=== PATIENT | female | born 1985 ===

== ENCOUNTER 2017-05-24 00:32 | Emergency (ER) | payer BC, OTHER ==
[2017-05-24 00:33] VITALS: BMI 31.7
[2017-05-24 00:45] VITALS: TEMP 98.1; O2SAT 100
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
[2017-05-24 01:07] LABS: PH,URINE 7.5 (4.7-8.0); URINE BILIRUBIN NEGATIVE (NEGATIVE); URINE BLOOD LARGE (NEGATIVE); URINE GLUCOSE (UA) NEGATIVE (NEGATIVE); URINE LEUKOCYTE ESTERASE NEGATIVE Leu/uL (NEGATIVE); URINE PROTEIN NEGATIVE mg/dL (<30 mg/dL); URINE UROBILINOGEN 0.2 E.U./dL (<1 E.U./dL)
[2017-05-24 01:09] LABS: URINE APPEARANCE CLEAR (CLEAR); URINE COLOR YELLOW (YELLOW)
[2017-05-24 01:26] LABS: URINE EPITHELIAL CELLS 0 - 2 /hpf (0-5); URINE WBC 0 - 2 /hpf (0-6)
[2017-05-24] MEDS ORDERED: cefTRIAXone (Rocephin) 250 mg Inj IM STA (01:57)
[2017-05-24] MEDS ORDERED: Lidocaine 1% Inj (20ml) ONE (02:06)
[2017-05-24 02:09] LABS: BASO # 0.02 K/mm3 (0.0-2.0); BASO % 0.2 % (0.0-3.0); EOS # 0.3 (0.0-0.7); EOS % 3.2 % (1.5-5.0); GRAN # 5.44 (1.4-6.5); GRAN % 58.8 % (50.0-68.0); HEMOGLOBIN 13.7 g/dL (12.0-16.0); LYMPH # 2.6 (1.2-3.4); LYMPH % 27.8 % (22.0-35.0); MEAN CELL VOLUME 85.9 fl (80.0-105.0); MEAN CORPUSCULAR HEMOGLOBIN 28.8 pg (25.0-35.0); MEAN CORPUSCULAR HGB CONC 33.6 g/dl (31.0-37.0); MEAN PLATELET VOLUME 9.7 fl (7.0-11.0); MONO # 0.9 (0.1-0.6); RBC 4.75 10^6/uL (3.5-6.1); RED CELL DISTRIBUTION WIDTH 13.6 % (11.5-14.5); WHITE BLOOD COUNT 9.3 10^3/ul (4.5-11.0)
[2017-05-24 02:40] LABS: ALB/GLOB RATIO 1.2 (1.1-1.8); ALBUMIN 4.4 g/dL (3.0-4.8); ALT/SGPT 29 U/L (7-56); AST/SGOT 23 U/L (14-36); BLOOD UREA NITROGEN 16 mg/dL (7-21); CALCIUM 10.1 mg/dL (8.4-10.5); GFR AFRICAN-AMERICAN > 60; GFR NON-AFRICAN AMERICAN > 60
[2017-05-24] MEDS ORDERED: Iohexol 350 MG/100 ML VIAL ONE (02:46)
--- NOTE | 2017-05-24 03:53 | CT ---
EXAM: CT Abdomen and Pelvis With Intravenous Contrast EXAM DATE/TIME: 05/24/2017 1:58 AM CLINICAL HISTORY: 32 years old, female; Pain; Abdominal pain; Generalized; Additional info: Abd pain TECHNIQUE: Axial computed tomography images of the abdomen and pelvis with intravenous contrast. All CT scans at this facility use one or more dose reduction techniques, viz.: automated exposure control; ma/kV adjustment per patient size (including targeted exams where dose is matched to indication; i.e. head); or iterative reconstruction technique. Coronal and sagittal reformatted images were created and reviewed. CONTRAST: 96 mL of omni 350 administered intravenously. COMPARISON: No relevant prior studies available. FINDINGS: Punctate 2 mm area of low attenuation in the hepatic dome too small to characterize. The spleen is normal. The pancreas is normal. No gallstones. No hydronephrosis or perinephric stranding. The bowel appears normal. A normal appendix is identified axial images 120- 126, coronal images 42 through 56. The uterus is normal. Bilateral ovarian follicles are noted. No aortic aneurysm or dissection. Stranding in the subcutaneous fat of the right by the uncertain etiology possibly related to injection. IMPRESSION: No acute findings.
[2017-05-24 04:08] VITALS: BP 138/82; PULSE 85; RESP 18
== END 2017-05-24 04:11 | disposition home or self-care (01) ==
LOC: ED 00:32
DX: N89.8 Other specified noninflammatory disorders of vagina (principal); R10.2 Pelvic and perineal pain; R10.9 Unspecified abdominal pain
CPT/HCPCS: 74177; 80053; 81001; 85025; 87086; 87491; 87591; 96372; 96374; 99283; J0696; J1885; Q9967

== ENCOUNTER 2017-12-14 18:42 | Inpatient (IN) | payer OTHER ==
[2017-12-14 19:09] VITALS: BMI 31.1
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
[2017-12-14 20:03] LABS: BASO # 0.01 K/mm3 (0.0-2.0); BASO % 0.1 % (0.0-3.0); EOS # 0.1 (0.0-0.7); EOS % 0.8 % (1.5-5.0); GRAN # 8.2 (1.4-6.5); HEMOGLOBIN 13.7 g/dL (12.0-16.0); LYMPH % 18.1 % (22.0-35.0); MEAN CORPUSCULAR HEMOGLOBIN 28.5 pg (25.0-35.0); MEAN CORPUSCULAR HGB CONC 33.2 g/dl (31.0-37.0); MEAN PLATELET VOLUME 9.5 fl (7.0-11.0); MONO # 0.8 (0.1-0.6); RBC 4.8 10^6/uL (3.5-6.1); RED CELL DISTRIBUTION WIDTH 13.7 % (11.5-14.5); WHITE BLOOD COUNT 11.1 10^3/ul (4.5-11.0)
[2017-12-14 20:14] LABS: HCG,QUALITATIVE URINE NEGATIVE (NEGATIVE)
[2017-12-14 20:15] LABS: PH,URINE 7.5 (4.7-8.0); URINE BILIRUBIN NEGATIVE (NEGATIVE); URINE BLOOD NEGATIVE (NEGATIVE); URINE GLUCOSE (UA) NEGATIVE (NEGATIVE); URINE LEUKOCYTE ESTERASE NEGATIVE Leu/uL (NEGATIVE); URINE PROTEIN NEGATIVE mg/dL (<30 mg/dL); URINE UROBILINOGEN 0.2 E.U./dL (<1 E.U./dL)
[2017-12-14 20:16] LABS: URINE APPEARANCE CLEAR (CLEAR); URINE COLOR YELLOW (YELLOW)
[2017-12-14 20:17] LABS: ALB/GLOB RATIO 1.1 (1.1-1.8); ALBUMIN 4.2 g/dL (3.0-4.8); ALT/SGPT 31 U/L (7-56); AST/SGOT 20 U/L (14-36); BLOOD UREA NITROGEN 10 mg/dL (7-21); CALCIUM 9.4 mg/dL (8.4-10.5); GFR NON-AFRICAN AMERICAN > 60
[2017-12-14 20:18] LABS: ACETAMINOPHEN < 10.0 ug/ml (10.0-20.0); SALICYLATE < 1 mg/dL (2.0-20.0)
[2017-12-14 20:50] LABS: BARBITURATES, UR NEGATIVE (NEGATIVE); BENZODIAZEPINES, UR NEGATIVE (NEGATIVE); OPIATES, UR NEGATIVE (NEGATIVE); PHENCYCLIDINE, UR NEGATIVE (NEGATIVE)
[2017-12-14] MEDS ORDERED: Alum-Mag Hydrox-Simethicone Susp (30 mL) PO PRN (21:28)
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
[2017-12-14] MEDS ORDERED: Sodium Chloride 0.9% 1,000 ML IV SCH (22:30)
[2017-12-15] MEDS: Pantoprazole 40 mg EC Tab PO SCH (05:41)
[2017-12-15 07:37] LABS: BASO # 0.01 K/mm3 (0.0-2.0); BASO % 0.1 % (0.0-3.0); EOS # 0.1 (0.0-0.7); EOS % 1.3 % (1.5-5.0); GRAN # 7.6 (1.4-6.5); GRAN % 82.6 % (50.0-68.0); HEMOGLOBIN 12.4 g/dL (12.0-16.0); LYMPH # 0.6 (1.2-3.4); MEAN CELL VOLUME 87.4 fl (80.0-105.0); MEAN CORPUSCULAR HEMOGLOBIN 27.9 pg (25.0-35.0); MEAN PLATELET VOLUME 9.6 fl (7.0-11.0); MONO # 0.8 (0.1-0.6); RBC 4.44 10^6/uL (3.5-6.1); WHITE BLOOD COUNT 9.2 10^3/ul (4.5-11.0)
[2017-12-15 08:03] LABS: ALB/GLOB RATIO 1.2 (1.1-1.8); ALBUMIN 3.8 g/dL (3.0-4.8); ALT/SGPT 29 U/L (7-56); AST/SGOT 14 U/L (14-36); BLOOD UREA NITROGEN 8 mg/dL (7-21); CALCIUM 9.2 mg/dL (8.4-10.5); GFR NON-AFRICAN AMERICAN > 60
--- NOTE | 2017-12-15 11:37 | CARD ---
APPROVED REPORT Date of service: 12/15/2017 EKG Measurement Heart [id number] <Conclusion> Normal sinus rhythm Normal ECG
--- NOTE | 2017-12-15 11:38 | CP.PCM.DIS ---
<Ghanshyam Boo - Last Filed: 12/15/17 14:21> Provider - Provider Date of Admission: 12/14/17 20:52 Attending physician: Vee Aldana MD Primary care physician: Lizteh rAana MD Time Spent in preparation of Discharge (in minutes): 45 Diagnosis - Discharge Diagnosis (1) Overdose Status: Resolved Priority: High (2) Suicidal ideation Status: Resolved Priority: High (3) Bipolar depression Status: Chronic Priority: Medium Hospital Course - Lab Results Lab Results: Most Recent Lab Values WBC 9.2 10^3/ul (4.5-11.0) 12/15/17 06:00 RBC 4.44 10^6/uL (3.5-6.1) 12/15/17 06:00 Hgb 12.4 g/dL (12.0-16.0) 12/15/17 06:00 Hct 38.8 % (36.0-48.0) 12/15/17 06:00 MCV 87.4 fl (80.0-105.0) 12/15/17 06:00 MCH 27.9 pg (25.0-35.0) 12/15/17 06:00 MCHC 32.0 g/dl (31.0-37.0) 12/15/17 06:00 RDW 14.0 % (11.5-14.5) 12/15/17 06:00 Plt Count 307 10^3/uL (120.0-450.0) 12/15/17 06:00 MPV 9.6 fl (7.0-11.0) 12/15/17 06:00 Gran % 82.6 % (50.0-68.0) H 12/15/17 06:00 Lymph % (Auto) 7.0 % (22.0-35.0) L 12/15/17 06:00 [place] % (Auto) 9.0 % (1.0-6.0) H 12/15/17 06:00 Eos % (Auto) 1.3 % (1.5-5.0) L 12/15/17 06:00 Baso % (Auto) 0.1 % (0.0-3.0) 12/15/17 06:00 Gran # 7.60 (1.4-6.5) H 12/15/17 06:00 Lymph # (Auto) 0.6 (1.2-3.4) L 12/15/17 06:00 [place] # (Auto) 0.8 (0.1-0.6) H 12/15/17 06:00 Eos # (Auto) 0.1 (0.0-0.7) 12/15/17 06:00 Baso # (Auto) 0.01 K/mm3 (0.0-2.0) 12/15/17 06:00 Sodium 140 mmol/L (132-148) 12/15/17 06:00 Potassium 4.1 mmol/L (3.6-5.0) 12/15/17 06:00 Chloride 106 mmol/L (98-107) 12/15/17 06:00 Carbon Dioxide 25 mmol/L (21-33) 12/15/17 06:00 Anion Gap 13 (10-20) 12/15/17 06:00 BUN 8 mg/dL (7-21) 12/15/17 06:00 Creatinine 0.6 mg/dl (0.7-1.2) L 12/15/17 06:00 Est GFR ( Amer) > 60 12/15/17 06:00 Est GFR (Non-Af Amer) > 60 12/15/17 06:00 Random Glucose 96 mg/dL (70-110) 12/15/17 06:00 Calcium 9.2 mg/dL (8.4-10.5) 12/15/17 06:00 Phosphorus 3.8 mg/dL (2.5-4.5) 12/15/17 06:00 Magnesium 2.1 mg/dL (1.7-2.2) 12/15/17 06:00 Total Bilirubin 0.5 mg/dL (0.2-1.3) 12/15/17 06:00 AST 14 U/L (14-36) D 12/15/17 06:00 ALT 29 U/L (7-56) 12/15/17 06:00 Alkaline Phosphatase 70 U/L (38-126) 12/15/17 06:00 Total Creatine Kinase 31 U/L (35-230) L 12/15/17 06:00 Total Protein 6.9 g/dL (5.8-8.3) 12/15/17 06:00 Albumin 3.8 g/dL (3.0-4.8) 12/15/17 06:00 Globulin 3.1 gm/dL 12/15/17 06:00 Albumin/Globulin Ratio 1.2 (1.1-1.8) 12/15/17 06:00 Urine Color Yellow (YELLOW) 12/14/17 20:01 Urine Appearance Clear (CLEAR) 12/14/17 20:01 Urine pH 7.5 (4.7-8.0) 12/14/17 20:01 Ur Specific [place] 1.015 (1.005-1.035) 12/14/17 20:01 Urine Protein Negative mg/dL (<30 mg/dL) 12/14/17 20:01 Urine Glucose (UA) Negative mg/dL (NEGATIVE) 12/14/17 20:01 Urine Ketones Negative mg/dL (NEGATIVE) 12/14/17 20:01 Urine Blood Negative (NEGATIVE) 12/14/17 20:01 Urine Nitrate Negative (NEGATIVE) 12/14/17 20: Urine Bilirubin Negative (NEGATIVE) 12/14/17 20:01 Urine Urobilinogen 0.2 E.U./dL (<1 E.U./dL) 12/14/17 20:01 Ur Leukocyte Esterase Negative Danielle/uL (NEGATIVE) 12/14/17 20:01 Urine HCG, Qual Negative (NEGATIVE) 12/14/17 20:01 Salicylates < 1 mg/dL (2.0-20.0) L 12/14/17 19:52 Urine Opiates Screen Negative (NEGATIVE) 12/14/17 20:01 Urine Methadone Screen Negative (NEGATIVE) 12/14/17 20:01 Acetaminophen < 10.0 ug/ml (10.0-20.0) L 12/14/17 19:52 Ur Barbiturates Screen Negative (NEGATIVE) 12/14/17 20:01 Ur Phencyclidine Scrn Negative (NEGATIVE) 12/14/17 20:01 Ur Amphetamines Screen Negative (NEGATIVE) 12/14/17 20:01 U Benzodiazepines Scrn Negative (NEGATIVE) 12/14/17 20:01 U Oth Cocaine Metabols Negative (NEGATIVE) 12/14/17 20:01 U Cannabinoids Screen Negative (NEGATIVE) 12/14/17 20:01 Alcohol, Quantitative < 10 mg/dL (0-10) 12/14/17 19:52 - Hospital Course Hospital Course: Patient is a 32 female with a past medical history of bipolar depression who was admitted for evaluation and treatment of drug overdose. Patient admitted for taking 20 mg Ambien and 1500 mg of Bupropion because she wanted to harm herself. With the use of physical examinations, lab work, and imaging the patient was diagnosed with and treated for drug overdose and suicide attempt. Poison control was contact and recommendations included observation for 24 hours for seizures. No seizure like activity was noted. During their hospital stay the patient was seen by psychiatry, Dr. Eli, whose recommendations were both appreciated and utilized in the care for this patient. Patient is willing to continue treatment in the psychiatry unit. During their hospital stay the patient underwent and EKG and chest xray which were reviewed, appreciated, and utilized in the management of the patients clinical course. Chest x-ray showed no acute intervention. EKG showed NSR, HR 95bpm, QTc 439ms. At this time the patient is medically stable for discharge to the psychiatry unit. Patient understands and appreciates discharge plan. Patient instructed to follow up with primary care physicians and referrals within three to five days from discharge. Furthermore, the patient is instructed to take medications as prescribed and to return to emergency room for evaluation of intractable headache, fever, chills, dizziness, chest pain, shortness of breath, abdominal pain, nausea, vomiting, diarrhea, constipation, and urinary symptoms. This is a brief summary of the patients hospital course. Please see patient chart for full details. Discharge Exam - Additional Findings Additional findings: - Constitutional Appears: Well, Non-toxic, No Acute Distress - Head Exam Head Exam: ATRAUMATIC, NORMOCEPHALIC - Eye Exam Eye Exam: EOMI, Normal appearance - ENT Exam ENT Exam: Mucous Membranes Moist - Neck Exam Neck exam: Positive for: Normal Inspection. Negative for: Meningismus, Tenderness, Thyromegaly - Respiratory Exam Respiratory Exam: Clear to Auscultation Bilateral, NORMAL BREATHING PATTERN. absent: Rales, Rhonchi, Wheezes - Cardiovascular Exam Cardiovascular Exam: RRR, +S1, +S2. absent: Bradycardia, Gallop, JVD - GI/Abdominal Exam GI & Abdominal Exam: Normal Bowel Sounds, Soft. absent: Distended, Guarding, Rebound, Tenderness - Extremities Exam Extremities exam: Negative for: calf tenderness, pedal edema - Back Exam Back exam: NORMAL INSPECTION. absent: CVA tenderness (L), CVA tenderness (R), paraspinal tenderness - Neurological Exam Neurological exam: Alert, Oriented x3 - Psychiatric Exam Psychiatric exam: Normal Affect, Normal Mood - Skin Skin Exam: Dry, Intact, Normal Color, Warm Discharge Plan - Follow Up Plan Condition: STABLE Disposition: DISCHARGE TO [facility] Additional Instructions: Patient Instructions: 1. Please follow up with primary care physician within 3-5 days from discharge 2. Please take home medications as prescribed. 3. Please return to emergency department for evaluation of new or worsening symptoms including but limited to fever, chills, chest pain, shortness of breath, abdominal pain, nausea, vomiting, diarrhea, constipation, and urinary symptoms. Referrals: Lizeth Arana MD [Primary Care Provider] - <Vee Aldana - Last Filed: 12/15/17 14:55> Provider - Provider Date of Admission: 12/14/17 20:52 Attending physician: Vee Aldana MD Primary care physician: Lizeth Arana MD [facility] Course - Lab Results Lab Results: Most Recent Lab Values WBC 9.2 10^3/ul (4.5-11.0) 12/15/17 06:00 RBC 4.44 10^6/uL (3.5-6.1) 12/15/17 06:00 Hgb 12.4 g/dL (12.0-16.0) 12/15/17 06:00 Hct 38.8 % (36.0-48.0) 12/15/17 06:00 MCV 87.4 fl (80.0-105.0) 12/15/17 06:00 MCH 27.9 pg (25.0-35.0) 12/15/17 06:00 MCHC 32.0 g/dl (31.0-37.0) 12/15/17 06:00 RDW 14.0 % (11.5-14.5) 12/15/17 06:00 Plt Count 307 10^3/uL (120.0-450.0) 12/15/17 06:00 MPV 9.6 fl (7.0-11.0) 12/15/17 06:00 Gran % 82.6 % (50.0-68.0) H 12/15/17 06:00 Lymph % (Auto) 7.0 % (22.0-35.0) L 12/15/17 06:00 [place] % (Auto) 9.0 % (1.0-6.0) H 12/15/17 06:00 Eos % (Auto) 1.3 % (1.5-5.0) L 12/15/17 06:00 Baso % (Auto) 0.1 % (0.0-3.0) 12/15/17 06:00 Gran # 7.60 (1.4-6.5) H 12/15/17 06:00 Lymph # (Auto) 0.6 (1.2-3.4) L 12/15/17 06:00 [place] # (Auto) 0.8 (0.1-0.6) H 12/15/17 06:00 Eos # (Auto) 0.1 (0.0-0.7) 12/15/17 06:00 Baso # (Auto) 0.01 K/mm3 (0.0-2.0) 12/15/17 06:00 Sodium 140 mmol/L (132-148) 12/15/17 06:00 Potassium 4.1 mmol/L (3.6-5.0) 12/15/17 06:00 Chloride 106 mmol/L (98-107) 12/15/17 06:00 Carbon Dioxide 25 mmol/L (21-33) 12/15/17 06:00 Anion Gap 13 (10-20) 12/15/17 06:00 BUN 8 mg/dL (7-21) 12/15/17 06:00 Creatinine 0.6 mg/dl (0.7-1.2) L 12/15/17 06:00 Est GFR ( Amer) > 60 12/15/17 06:00 Est GFR (Non-Af Amer) > 60 12/15/17 06:00 Random Glucose 96 mg/dL (70-110) 12/15/17 06:00 Calcium 9.2 mg/dL (8.4-10.5) 12/15/17 06:00 Phosphorus 3.8 mg/dL (2.5-4.5) 12/15/17 06:00 Magnesium 2.1 mg/dL (1.7-2.2) 12/15/17 06:00 Total Bilirubin 0.5 mg/dL (0.2-1.3) 12/15/17 06:00 AST 14 U/L (14-36) D 12/15/17 06:00 ALT 29 U/L (7-56) 12/15/17 06:00 Alkaline Phosphatase 70 U/L (38-126) 12/15/17 06:00 Total Creatine Kinase 31 U/L (35-230) L 12/15/17 06:00 Total Protein 6.9 g/dL (5.8-8.3) 12/15/17 06:00 Albumin 3.8 g/dL (3.0-4.8) 12/15/17 06:00 Globulin 3.1 gm/dL 12/15/17 06:00 Albumin/Globulin Ratio 1.2 (1.1-1.8) 12/15/17 06:00 Urine Color Yellow (YELLOW) 12/14/17 20:01 Urine Appearance Clear (CLEAR) 12/14/17 20: Urine pH 7.5 (4.7-8.0) 12/14/17 20:01 Ur Specific [place] 1.015 (1.005-1.035) 12/14/17 20:01 Urine Protein Negative mg/dL (<30 mg/dL) 12/14/17 20:01 Urine Glucose (UA) Negative mg/dL (NEGATIVE) 12/14/17 20:01 Urine Ketones Negative mg/dL (NEGATIVE) 12/14/17 20:01 Urine Blood Negative (NEGATIVE) 12/14/17 20: Urine Nitrate Negative (NEGATIVE) 12/14/17 20: Urine Bilirubin Negative (NEGATIVE) 12/14/17 20:01 Urine Urobilinogen 0.2 E.U./dL (<1 E.U./dL) 12/14/17 20:01 Ur Leukocyte Esterase Negative Danielle/uL (NEGATIVE) 12/14/17 20: Urine HCG, Qual Negative (NEGATIVE) 12/14/17 20:01 Salicylates < 1 mg/dL (2.0-20.0) L 12/14/17 19:52 Urine Opiates Screen Negative (NEGATIVE) 12/14/17 20:01 Urine Methadone Screen Negative (NEGATIVE) 10/12/18 20:01 Acetaminophen < 10.0 ug/ml (10.0-20.0) L 12/14/17 19:52 Ur Barbiturates Screen Negative (NEGATIVE) 12/14/17 20:01 Ur Phencyclidine Scrn Negative (NEGATIVE) 12/14/17 20:01 Ur Amphetamines Screen Negative (NEGATIVE) 12/14/17 20:01 U Benzodiazepines Scrn Negative (NEGATIVE) 12/14/17 20:01 U Oth Cocaine Metabols Negative (NEGATIVE) 12/14/17 20:01 U Cannabinoids Screen Negative (NEGATIVE) 12/14/17 20:01 Alcohol, Quantitative < 10 mg/dL (0-10) 12/14/17 19:52 Attending/Attestation - Attestation I have personally seen and examined this patient.: Yes I have fully participated in the care of the patient.: Yes I have reviewed all pertinent clinical information, including history, physical exam and plan: Yes Notes (Text): 12/15/17 14:50 32 year old female with past medical history of bipolar/depression who presented after drug overdose. She states she took too many ambien and buproprion because she wasn't feeling well. She had slight leukocytosis, likely reactive, which resolved. UTox was negative. She was started on 1:1 observation and monitored in telemetry unit without any acute events. She was seen by psychiatrist who recommended inpatient psychiatric admission to which patient is agreeable. Patient will be transferred to inpatient psychiatric unit. Vee Aldana MD Hospitalist.
--- NOTE | 2017-12-15 11:39 | CARD ---
APPROVED REPORT Date of service: 12/14/2017 EKG Measurement Heart [id number] <Conclusion> Normal sinus rhythm Normal ECG
--- NOTE | 2017-12-15 11:48 | CP.PCM.DIS ---
Provider - Provider Date of Admission: 12/14/17 20:52 Attending physician: Vee Aldana MD Primary care physician: Lizeth Arana MD Time Spent in preparation of Discharge (in minutes): 45 Hospital Course - Lab Results Lab Results: Most Recent Lab Values WBC 9.2 10^3/ul (4.5-11.0) 12/15/17 06:00 RBC 4.44 10^6/uL (3.5-6.1) 12/15/17 06:00 Hgb 12.4 g/dL (12.0-16.0) 12/15/17 06:00 Hct 38.8 % (36.0-48.0) 12/15/17 06:00 MCV 87.4 fl (80.0-105.0) 12/15/17 06:00 MCH 27.9 pg (25.0-35.0) 12/15/17 06:00 MCHC 32.0 g/dl (31.0-37.0) 12/15/17 06:00 RDW 14.0 % (11.5-14.5) 12/15/17 06:00 Plt Count 307 10^3/uL (120.0-450.0) 12/15/17 06:00 MPV 9.6 fl (7.0-11.0) 12/15/17 06:00 Gran % 82.6 % (50.0-68.0) H 12/15/17 06:00 Lymph % (Auto) 7.0 % (22.0-35.0) L 12/15/17 06:00 [place] % (Auto) 9.0 % (1.0-6.0) H 12/15/17 06:00 Eos % (Auto) 1.3 % (1.5-5.0) L 12/15/17 06:00 Baso % (Auto) 0.1 % (0.0-3.0) 12/15/17 06:00 Gran # 7.60 (1.4-6.5) H 12/15/17 06:00 Lymph # (Auto) 0.6 (1.2-3.4) L 12/15/17 06:00 [place] # (Auto) 0.8 (0.1-0.6) H 12/15/17 06:00 Eos # (Auto) 0.1 (0.0-0.7) 12/15/17 06:00 Baso # (Auto) 0.01 K/mm3 (0.0-2.0) 12/15/17 06:00 Sodium 140 mmol/L (132-148) 12/15/17 06:00 Potassium 4.1 mmol/L (3.6-5.0) 12/15/17 06:00 Chloride 106 mmol/L (98-107) 12/15/17 06:00 Carbon Dioxide 25 mmol/L (21-33) 12/15/17 06:00 Anion Gap 13 (10-20) 12/15/17 06:00 BUN 8 mg/dL (7-21) 12/15/17 06:00 Creatinine 0.6 mg/dl (0.7-1.2) L 12/15/17 06:00 Est GFR ( Amer) > 60 12/15/17 06:00 Est GFR (Non-Af Amer) > 60 12/15/17 06:00 Random Glucose 96 mg/dL (70-110) 12/15/17 06:00 Calcium 9.2 mg/dL (8.4-10.5) 12/15/17 06:00 Phosphorus 3.8 mg/dL (2.5-4.5) 12/15/17 06:00 Magnesium 2.1 mg/dL (1.7-2.2) 12/15/17 06:00 Total Bilirubin 0.5 mg/dL (0.2-1.3) 12/15/17 06:00 AST 14 U/L (14-36) D 12/15/17 06:00 ALT 29 U/L (7-56) 12/15/17 06:00 Alkaline Phosphatase 70 U/L (38-126) 12/15/17 06:00 Total Creatine Kinase 31 U/L (35-230) L 12/15/17 06:00 Total Protein 6.9 g/dL (5.8-8.3) 12/15/17 06:00 Albumin 3.8 g/dL (3.0-4.8) 12/15/17 06:00 Globulin 3.1 gm/dL 12/15/17 06:00 Albumin/Globulin Ratio 1.2 (1.1-1.8) 12/15/17 06:00 Urine Color Yellow (YELLOW) 12/14/17 20:01 Urine Appearance Clear (CLEAR) 12/14/17 20:01 Urine pH 7.5 (4.7-8.0) 12/14/17 20:01 Ur Specific [place] 1.015 (1.005-1.035) 12/14/17 20:01 Urine Protein Negative mg/dL (<30 mg/dL) 12/14/17 20:01 Urine Glucose (UA) Negative mg/dL (NEGATIVE) 12/14/17 20:01 Urine Ketones Negative mg/dL (NEGATIVE) 12/14/17 20:01 Urine Blood Negative (NEGATIVE) 12/14/17 20:01 Urine Nitrate Negative (NEGATIVE) 12/14/17 20:01 Urine Bilirubin Negative (NEGATIVE) 12/14/17 20:01 Urine Urobilinogen 0.2 E.U./dL (<1 E.U./dL) 12/14/17 20:01 Ur Leukocyte Esterase Negative Danielle/uL (NEGATIVE) 12/14/17 20:01 Urine HCG, Qual Negative (NEGATIVE) 12/14/17 20:01 Salicylates < 1 mg/dL (2.0-20.0) L 12/14/17 19:52 Urine Opiates Screen Negative (NEGATIVE) 12/14/17 20:01 Urine Methadone Screen Negative (NEGATIVE) 12/14/17 20:01 Acetaminophen < 10.0 ug/ml (10.0-20.0) L 12/14/17 19:52 Ur Barbiturates Screen Negative (NEGATIVE) 12/14/17 20:01 Ur Phencyclidine Scrn Negative (NEGATIVE) 12/14/17 20:01 Ur Amphetamines Screen Negative (NEGATIVE) 12/14/17 20:01 U Benzodiazepines Scrn Negative (NEGATIVE) 12/14/17 20:01 U Oth Cocaine Metabols Negative (NEGATIVE) 12/14/17 20:01 U Cannabinoids Screen Negative (NEGATIVE) 12/14/17 20:01 Alcohol, Quantitative < 10 mg/dL (0-10) 12/14/17 19:52 Discharge Exam - Head Exam Head Exam: ATRAUMATIC, NORMOCEPHALIC Discharge Plan - Follow Up Plan Condition: STABLE Disposition: [facility]CHARGE TO [facility] Additional Instructions: Patient Instructions: 1. Please follow up with primary care physician within 3-5 days from discharge 2. Please take home medications as prescribed. 3. Please return to emergency department for evaluation of new or worsening symptoms including but limited to fever, chills, chest pain, shortness of breath, abdominal pain, nausea, vomiting, diarrhea, constipation, and urinary symptoms. Referrals: Lizeth Arana MD [Primary Care Provider] -
--- NOTE | 2017-12-15 17:24 | RAD ---
Date of service: 12/14/2017 HISTORY: pysch COMPARISON: No prior. FINDINGS: LUNGS: No active pulmonary disease. PLEURA: No significant pleural effusion identified, no pneumothorax apparent. CARDIOVASCULAR: Normal. OSSEOUS STRUCTURES: No significant abnormalities. VISUALIZED UPPER ABDOMEN: Normal. OTHER FINDINGS: None. IMPRESSION: No active disease.
--- NOTE | 2017-12-15 22:23 | CARD ---
APPROVED REPORT Date of service: 12/15/2017 EKG Measurement Heart [id number] <Conclusion> Normal sinus rhythm Normal ECG
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
[2017-12-16 05:44] VITALS: O2SAT 98
[2017-12-16] MEDS: Pantoprazole 40 mg EC Tab PO SCH (06:01)
[2017-12-16 07:52] LABS: BASO # 0.01 K/mm3 (0.0-2.0); BASO % 0.1 % (0.0-3.0); EOS # 0.3 (0.0-0.7); EOS % 4.4 % (1.5-5.0); GRAN # 5.63 (1.4-6.5); GRAN % 74.2 % (50.0-68.0); HEMOGLOBIN 12.7 g/dL (12.0-16.0); LYMPH % 12.7 % (22.0-35.0); MEAN CELL VOLUME 86.5 fl (80.0-105.0); MEAN CORPUSCULAR HEMOGLOBIN 27.7 pg (25.0-35.0); MEAN CORPUSCULAR HGB CONC 32.1 g/dl (31.0-37.0); MEAN PLATELET VOLUME 9.6 fl (7.0-11.0); MONO # 0.7 (0.1-0.6); MONO % 8.6 % (1.0-6.0); RBC 4.58 10^6/uL (3.5-6.1); RED CELL DISTRIBUTION WIDTH 14.1 % (11.5-14.5); WHITE BLOOD COUNT 7.6 10^3/ul (4.5-11.0)
[2017-12-16 08:10] LABS: ALB/GLOB RATIO 1.2 (1.1-1.8); ALBUMIN 4.1 g/dL (3.0-4.8); ALT/SGPT 33 U/L (7-56); AST/SGOT 15 U/L (14-36); BLOOD UREA NITROGEN 12 mg/dL (7-21); CALCIUM 9.4 mg/dL (8.4-10.5); GFR NON-AFRICAN AMERICAN > 60
--- NOTE | 2017-12-16 11:44 | CP.PCM.DIS ---
<Jesus Dunne - Last Filed: 12/16/17 11:40> Provider - Provider Date of Admission: 12/14/17 20:52 Attending physician: Vee Aldana MD Primary care physician: Lizeth Arana MD Consults: Psychiatry: Dr Castaneda Time Spent in preparation of Discharge (in minutes): 37 Diagnosis - Discharge Diagnosis (1) Overdose Status: Resolved Priority: High (2) Suicidal ideation Status: Resolved Priority: High (3) Bipolar depression Status: Chronic Priority: Medium Hospital Course - Lab Results Lab Results: Most Recent Lab Values WBC 7.6 10^3/ul (4.5-11.0) 12/16/17 06:30 RBC 4.58 10^6/uL (3.5-6.1) 12/16/17 06:30 Hgb 12.7 g/dL (12.0-16.0) 12/16/17 06:30 Hct 39.6 % (36.0-48.0) 12/16/17 06:30 MCV 86.5 fl (80.0-105.0) 12/16/17 06:30 MCH 27.7 pg (25.0-35.0) 12/16/17 06:30 MCHC 32.1 g/dl (31.0-37.0) 12/16/17 06:30 RDW 14.1 % (11.5-14.5) 12/16/17 06:30 Plt Count 318 10^3/uL (120.0-450.0) 12/16/17 06:30 MPV 9.6 fl (7.0-11.0) 12/16/17 06:30 Gran % 74.2 % (50.0-68.0) H 12/16/17 06:30 Lymph % (Auto) 12.7 % (22.0-35.0) L 12/16/17 06:30 [place] % (Auto) 8.6 % (1.0-6.0) H 12/16/17 06:30 Eos % (Auto) 4.4 % (1.5-5.0) 12/16/17 06:30 Baso % (Auto) 0.1 % (0.0-3.0) 12/16/17 06:30 Gran # 5.63 (1.4-6.5) 12/16/17 06:30 Lymph # (Auto) 1.0 (1.2-3.4) L 12/16/17 06:30 [place] # (Auto) 0.7 (0.1-0.6) H 12/16/17 06:30 Eos # (Auto) 0.3 (0.0-0.7) 12/16/17 06:30 Baso # (Auto) 0.01 K/mm3 (0.0-2.0) 12/16/17 06:30 Sodium 139 mmol/L (132-148) 12/16/17 06:30 Potassium 4.0 mmol/L (3.6-5.0) 12/16/17 06:30 Chloride 104 mmol/L (98-107) 12/16/17 06:30 Carbon Dioxide 26 mmol/L (21-33) 12/16/17 06:30 Anion Gap 13 (10-20) 12/16/17 06:30 BUN 12 mg/dL (7-21) 12/16/17 06:30 Creatinine 0.6 mg/dl (0.7-1.2) L 12/16/17 06:30 Est GFR ( Amer) > 60 12/16/17 06:30 Est GFR (Non-Af Amer) > 60 12/16/17 06:30 Random Glucose 107 mg/dL (70-110) 12/16/17 06:30 Calcium 9.4 mg/dL (8.4-10.5) 12/16/17 06:30 Phosphorus 3.8 mg/dL (2.5-4.5) 12/15/17 06:00 Magnesium 2.1 mg/dL (1.7-2.2) 12/15/17 06:00 Total Bilirubin 0.6 mg/dL (0.2-1.3) 12/16/17 06:30 AST 15 U/L (14-36) 12/16/17 06:30 ALT 33 U/L (7-56) 12/16/17 06:30 Alkaline Phosphatase 75 U/L (38-126) 12/16/17 06:30 Total Creatine Kinase 31 U/L (35-230) L 12/15/17 06:00 Total Protein 7.4 g/dL (5.8-8.3) 12/16/17 06:30 Albumin 4.1 g/dL (3.0-4.8) 12/16/17 06:30 Globulin 3.4 gm/dL 12/16/17 06:30 Albumin/Globulin Ratio 1.2 (1.1-1.8) 12/16/17 06:30 Urine Color Yellow (YELLOW) 12/14/17 20:01 Urine Appearance Clear (CLEAR) 12/14/17 20: Urine pH 7.5 (4.7-8.0) 12/14/17 20:01 Ur Specific [place] 1.015 (1.005-1.035) 12/14/17 20:01 Urine Protein Negative mg/dL (<30 mg/dL) 12/14/17 20: Urine Glucose (UA) Negative mg/dL (NEGATIVE) 12/14/17 20: Urine Ketones Negative mg/dL (NEGATIVE) 12/14/17 20:01 Urine Blood Negative (NEGATIVE) 12/14/17 20: Urine Nitrate Negative (NEGATIVE) 12/14/17 20: Urine Bilirubin Negative (NEGATIVE) 12/14/17 20:01 Urine Urobilinogen 0.2 E.U./dL (<1 E.U./dL) 12/14/17 20:01 Ur Leukocyte Esterase Negative Danielle/uL (NEGATIVE) 12/14/17 20:01 Urine HCG, Qual Negative (NEGATIVE) 12/14/17 20:01 Salicylates < 1 mg/dL (2.0-20.0) L 12/14/17 19:52 Urine Opiates Screen Negative (NEGATIVE) 12/14/17 20:01 Urine Methadone Screen Negative (NEGATIVE) 12/14/17 20:01 Acetaminophen < 10.0 ug/ml (10.0-20.0) L 12/14/17 19:52 Ur Barbiturates Screen Negative (NEGATIVE) 12/14/17 20:01 Ur Phencyclidine Scrn Negative (NEGATIVE) 12/14/17 20:01 Ur Amphetamines Screen Negative (NEGATIVE) 12/14/17 20:01 U Benzodiazepines Scrn Negative (NEGATIVE) 12/14/17 20:01 U Oth Cocaine Metabols Negative (NEGATIVE) 12/14/17 20:01 U Cannabinoids Screen Negative (NEGATIVE) 12/14/17 20:01 Alcohol, Quantitative < 10 mg/dL (0-10) 12/14/17 19:52 - Hospital Course Hospital Course: Patient is a 32 female with a past medical history of bipolar depression who was admitted for evaluation and treatment of drug overdose. Patient admitted for taking 20 mg Ambien and 1500 mg of Bupropion because she wanted to harm herself. With the use of physical examinations, lab work, and imaging the patient was diagnosed with and treated for drug overdose and suicide attempt. Poison control was contact and recommendations included observation for 24 hours for seizures. No seizure like activity was noted. During their hospital stay the patient was seen by psychiatry, Dr. Eli, whose recommendations were both appreciated and utilized in the care for this patient. Patient is willing to continue treatment in the psychiatry unit. During their hospital stay the patient underwent and EKG and chest xray which were reviewed, appreciated, and utilized in the management of the patients clinical course. Chest x-ray showed no acute intervention. EKG showed NSR, HR 95bpm, QTc 439ms. It was intended for patient to go to [facility] psychiatry unit however patient refused. Thus [employer] crisis rep from [facility] voluntary psych unit came to evaluate patient and was accepted. Patient will go to [facility] voluntary psychiatry unit. At this time the patient is medically stable for discharge to the psychiatry unit. Patient understands and appreciates discharge plan. Patient instructed to follow up with primary care physicians and referrals within three to five days from discharge. Furthermore, the patient is instructed to take medications as prescribed and to return to emergency room for evaluation of intractable headache, fever, chills, dizziness, chest pain, shortness of breath, abdominal pain, nausea, vomiting, diarrhea, constipation, and urinary symptoms. This is a brief summary of the patients hospital course. Please see patient chart for full details. Discharge Exam - Head Exam Head Exam: ATRAUMATIC, NORMOCEPHALIC - Additional Findings Additional findings: - Additional Findings Additional findings: - Constitutional Appears: Well, Non-toxic, No Acute Distress - Head Exam Head Exam: ATRAUMATIC, NORMOCEPHALIC - Eye Exam Eye Exam: EOMI, Normal appearance - ENT Exam ENT Exam: Mucous Membranes Moist - Neck Exam Neck exam: Positive for: Normal Inspection. Negative for: Meningismus, Tenderness, Thyromegaly - Respiratory Exam Respiratory Exam: Clear to Auscultation Bilateral, NORMAL BREATHING PATTERN. absent: Rales, Rhonchi, Wheezes - Cardiovascular Exam Cardiovascular Exam: RRR, +S1, +S2. absent: Bradycardia, Gallop, JVD - GI/Abdominal Exam GI & Abdominal Exam: Normal Bowel Sounds, Soft. absent: Distended, Guarding, Rebound, Tenderness - Extremities Exam Extremities exam: Negative for: calf tenderness, pedal edema - Back Exam Back exam: NORMAL INSPECTION. absent: CVA tenderness (L), CVA tenderness (R), paraspinal tenderness - Neurological Exam Neurological exam: Alert, Oriented x3 - Psychiatric Exam Psychiatric exam: Normal Affect, Normal Mood - Skin Skin Exam: Dry, Intact, Normal Color, Warm Discharge Plan - Follow Up Plan Condition: STABLE Disposition: DISCHARGE TO [facility] Additional Instructions: Patient Instructions: 1. Please follow up with primary care physician within 3-5 days from discharge 2. Please take home medications as prescribed. 3. Please return to emergency department for evaluation of new or worsening symptoms including but limited to fever, chills, chest pain, shortness of breath, abdominal pain, nausea, vomiting, diarrhea, constipation, and urinary symptoms. Referrals: Lizeth Arana MD [Primary Care Provider] - <Vee Aldana - Last Filed: 12/16/17 13:19> Provider - Provider Date of Admission: 12/14/17 20:52 Attending physician: Vee Aldana MD Primary care physician: Lizeth Arana MD Hospital Course - Lab Results Lab Results: Most Recent Lab Values WBC 7.6 10^3/ul (4.5-11.0) 12/16/17 06:30 RBC 4.58 10^6/uL (3.5-6.1) 12/16/17 06:30 Hgb 12.7 g/dL (12.0-16.0) 12/16/17 06:30 Hct 39.6 % (36.0-48.0) 12/16/17 06:30 MCV 86.5 fl (80.0-105.0) 12/16/17 06:30 MCH 27.7 pg (25.0-35.0) 12/16/17 06:30 MCHC 32.1 g/dl (31.0-37.0) 12/16/17 06:30 RDW 14.1 % (11.5-14.5) 12/16/17 06:30 Plt Count 318 10^3/uL (120.0-450.0) 12/16/17 06:30 MPV 9.6 fl (7.0-11.0) 12/16/17 06:30 Gran % 74.2 % (50.0-68.0) H 12/16/17 06:30 Lymph % (Auto) 12.7 % (22.0-35.0) L 12/16/17 06:30 [place] % (Auto) 8.6 % (1.0-6.0) H 12/16/17 06:30 Eos % (Auto) 4.4 % (1.5-5.0) 12/16/17 06:30 Baso % (Auto) 0.1 % (0.0-3.0) 12/16/17 06:30 Gran # 5.63 (1.4-6.5) 12/16/17 06:30 Lymph # (Auto) 1.0 (1.2-3.4) L 12/16/17 06:30 [place] # (Auto) 0.7 (0.1-0.6) H 12/16/17 06:30 Eos # (Auto) 0.3 (0.0-0.7) 12/16/17 06:30 Baso # (Auto) 0.01 K/mm3 (0.0-2.0) 12/16/17 06:30 Sodium 139 mmol/L (132-148) 12/16/17 06:30 Potassium 4.0 mmol/L (3.6-5.0) 12/16/17 06:30 Chloride 104 mmol/L (98-107) 12/16/17 06:30 Carbon Dioxide 26 mmol/L (21-33) 12/16/17 06:30 Anion Gap 13 (10-20) 12/16/17 06:30 BUN 12 mg/dL (7-21) 12/16/17 06:30 Creatinine 0.6 mg/dl (0.7-1.2) L 12/16/17 06:30 Est GFR ( Amer) > 60 12/16/17 06:30 Est GFR (Non-Af Amer) > 60 12/16/17 06:30 Random Glucose 107 mg/dL (70-110) 12/16/17 06:30 Calcium 9.4 mg/dL (8.4-10.5) 12/16/17 06:30 Phosphorus 3.8 mg/dL (2.5-4.5) 12/15/17 06:00 Magnesium 2.1 mg/dL (1.7-2.2) 12/15/17 06:00 Total Bilirubin 0.6 mg/dL (0.2-1.3) 12/16/17 06:30 AST 15 U/L (14-36) 12/16/17 06:30 ALT 33 U/L (7-56) 12/16/17 06:30 Alkaline Phosphatase 75 U/L (38-126) 12/16/17 06:30 Total Creatine Kinase 31 U/L (35-230) L 12/15/17 06:00 Total Protein 7.4 g/dL (5.8-8.3) 12/16/17 06:30 Albumin 4.1 g/dL (3.0-4.8) 12/16/17 06:30 Globulin 3.4 gm/dL 12/16/17 06:30 Albumin/Globulin Ratio 1.2 (1.1-1.8) 12/16/17 06:30 Urine Color Yellow (YELLOW) 12/14/17 20:01 Urine Appearance Clear (CLEAR) 12/14/17 20: Urine pH 7.5 (4.7-8.0) 12/14/17 20:01 Ur Specific [place] 1.015 (1.005-1.035) 12/14/17 20:01 Urine Protein Negative mg/dL (<30 mg/dL) 12/14/17 20:01 Urine Glucose (UA) Negative mg/dL (NEGATIVE) 12/14/17 20:01 Urine Ketones Negative mg/dL (NEGATIVE) 12/14/17 20:01 Urine Blood Negative (NEGATIVE) 12/14/17 20: Urine Nitrate Negative (NEGATIVE) 12/14/17 20: Urine Bilirubin Negative (NEGATIVE) 12/14/17 20: Urine Urobilinogen 0.2 E.U./dL (<1 E.U./dL) 12/14/17 20:01 Ur Leukocyte Esterase Negative Danielle/uL (NEGATIVE) 12/14/17 20:01 Urine HCG, Qual Negative (NEGATIVE) 12/14/17 20:01 Salicylates < 1 mg/dL (2.0-20.0) L 12/14/17 19:52 Urine Opiates Screen Negative (NEGATIVE) 12/14/17 20:01 Urine Methadone Screen Negative (NEGATIVE) 12/14/17 20:01 Acetaminophen < 10.0 ug/ml (10.0-20.0) L 12/14/17 19:52 Ur Barbiturates Screen Negative (NEGATIVE) 12/14/17 20:01 Ur Phencyclidine Scrn Negative (NEGATIVE) 12/14/17 20:01 Ur Amphetamines Screen Negative (NEGATIVE) 12/14/17 20:01 U Benzodiazepines Scrn Negative (NEGATIVE) 12/14/17 20:01 U Oth Cocaine Metabols Negative (NEGATIVE) 12/14/17 20:01 U Cannabinoids Screen Negative (NEGATIVE) 12/14/17 20:01 Alcohol, Quantitative < 10 mg/dL (0-10) 12/14/17 19:52 Attending/Attestation - Attestation I have personally seen and examined this patient.: Yes I have fully participated in the care of the patient.: Yes I have reviewed all pertinent clinical information, including history, physical exam and plan: Yes Notes (Text): 12/16/17 13:17 32 year old female with past medical history of bipolar/depression who presented after drug overdose. She stated she took too many ambien and buproprion because she wasn't feeling well. She had slight leukocytosis, likely reactive, which resolved. Urine drug screen was negative. She was started on 1:1 observation and monitored in telemetry unit without any acute events. She was seen by psychiatrist who recommended inpatient psychiatric admission to which patient refused. She was seen by [facility] screeners for involuntary admission last night and was accepted. However she is pending bed. She is medical cleared to be transferred to [facility] once bed is available. Vee Aldana MD Hospitalist.
--- NOTE | 2017-12-16 14:13 | PN ---
DATE: 12/16/2017 SUBJECTIVE: In short, the patient was admitted status post overdose on Wellbutrin. This senior mortgage underwriter offered the patient admission to stay in the hospital for further evaluation and stabilization, but the patient declined that offer. Yesterday, the patient was screened and was accepted for involuntary commitment screening. This senior mortgage underwriter followed up on this patient today. The patient reported that she was sleeping very well. The patient wants to continue all of the medications. The patient is aware about disposition plan. The patient does not appear to be agitated or aggressive. Vital signs are stable. Temperature 99, pulse 88, blood pressure 117/66, respiration 20, oxygen saturation is 98. Medications reviewed, Protonix, Paxil 10 mg at the nighttime, Seroquel 25 mg at the nighttime, Sonata as needed. Labs reviewed. Most recent was from today, seems to be stable. Chemistries within normal limits. Toxicology negative for any substances. MENTAL STATUS EXAM: The patient presented to be alert, fair eye contact. Speech was normal rate, tone, quality and quantity. Mood described, "I want to go home." Affect was constricted, but more reactive and mood congruent. Thought process was coherent and goal directed. Thought content, the patient denied visual, auditory, tactile hallucinations. Denied paranoid ideation. The patient denied thoughts of harming herself or others, but in the emergency room, the patient said that she wanted to . Insight and judgment seems to be limited, but improving. Impulses are well controlled. IMPRESSION: Rule out major depressive disorder, rule out bipolar disorder. PLAN: Continue current management. Continue current medication. The patient will be transferred to [facility] whenever bed is available. The patient is currently on one-to-one. Should you have any questions, give me a call back. Thank you very much for letting me participate in the care of your patient. Alcira Castaneda MD
[2017-12-17 00:38] VITALS: RESP 20
[2017-12-17] MEDS: Pantoprazole 40 mg EC Tab PO SCH (05:30)
[2017-12-17 07:10] LABS: BASO # 0.01 K/mm3 (0.0-2.0); BASO % 0.1 % (0.0-3.0); EOS # 0.3 (0.0-0.7); EOS % 3.7 % (1.5-5.0); GRAN # 5.74 (1.4-6.5); GRAN % 69.1 % (50.0-68.0); HEMOGLOBIN 13.2 g/dL (12.0-16.0); LYMPH # 1.3 (1.2-3.4); LYMPH % 15.4 % (22.0-35.0); MEAN CELL VOLUME 85.9 fl (80.0-105.0); MEAN CORPUSCULAR HEMOGLOBIN 27.8 pg (25.0-35.0); MEAN CORPUSCULAR HGB CONC 32.4 g/dl (31.0-37.0); MEAN PLATELET VOLUME 9.4 fl (7.0-11.0); MONO % 11.7 % (1.0-6.0); RBC 4.75 10^6/uL (3.5-6.1); RED CELL DISTRIBUTION WIDTH 13.9 % (11.5-14.5); WHITE BLOOD COUNT 8.3 10^3/ul (4.5-11.0)
[2017-12-17 07:39] LABS: ALB/GLOB RATIO 1.1 (1.1-1.8); ALT/SGPT 24 U/L (7-56); AST/SGOT 21 U/L (14-36); BLOOD UREA NITROGEN 16 mg/dL (7-21); CALCIUM 9.3 mg/dL (8.4-10.5); GFR NON-AFRICAN AMERICAN > 60
--- NOTE | 2017-12-17 12:55 | CP.PCM.DIS ---
<Namrata Smith - Last Filed: 12/17/17 12:53> Provider - Provider Date of Admission: 12/14/17 20:52 Attending physician: Vee Aldana MD Primary care physician: Lizeth Arana MD Consults: Dr. Boo Time Spent in preparation of Discharge (in minutes): 45 Hospital Course - Lab Results Lab Results: Most Recent Lab Values WBC 8.3 10^3/ul (4.5-11.0) 12/17/17 07:00 RBC 4.75 10^6/uL (3.5-6.1) 12/17/17 07:00 Hgb 13.2 g/dL (12.0-16.0) 12/17/17 07:00 Hct 40.8 % (36.0-48.0) 12/17/17 07:00 MCV 85.9 fl (80.0-105.0) 12/17/17 07:00 MCH 27.8 pg (25.0-35.0) 12/17/17 07:00 MCHC 32.4 g/dl (31.0-37.0) 12/17/17 07:00 RDW 13.9 % (11.5-14.5) 12/17/17 07:00 Plt Count 331 10^3/uL (120.0-450.0) 12/17/17 07:00 MPV 9.4 fl (7.0-11.0) 12/17/17 07:00 Gran % 69.1 % (50.0-68.0) H 12/17/17 07:00 Lymph % (Auto) 15.4 % (22.0-35.0) L 12/17/17 07:00 Crawford % (Auto) 11.7 % (1.0-6.0) H 12/17/17 07:00 Eos % (Auto) 3.7 % (1.5-5.0) 12/17/17 07:00 Baso % (Auto) 0.1 % (0.0-3.0) 12/17/17 07:00 Gran # 5.74 (1.4-6.5) 12/17/17 07:00 Lymph # (Auto) 1.3 (1.2-3.4) 12/17/17 07:00 Crawford # (Auto) 1.0 (0.1-0.6) H 12/17/17 07:00 Eos # (Auto) 0.3 (0.0-0.7) 12/17/17 07:00 Baso # (Auto) 0.01 K/mm3 (0.0-2.0) 12/17/17 07:00 Sodium 139 mmol/L (132-148) 12/17/17 07:00 Potassium 3.9 mmol/L (3.6-5.0) 12/17/17 07:00 Chloride 103 mmol/L (98-107) 12/17/17 07:00 Carbon Dioxide 28 mmol/L (21-33) 12/17/17 07:00 Anion Gap 12 (10-20) 12/17/17 07:00 BUN 16 mg/dL (7-21) 12/17/17 07:00 Creatinine 0.6 mg/dl (0.7-1.2) L 12/17/17 07:00 Est GFR ( Amer) > 60 12/17/17 07:00 Est GFR (Non-Af Amer) > 60 12/17/17 07:00 Random Glucose 106 mg/dL (70-110) 12/17/17 07:00 Calcium 9.3 mg/dL (8.4-10.5) 12/17/17 07:00 Phosphorus 3.8 mg/dL (2.5-4.5) 12/15/17 06:00 Magnesium 2.1 mg/dL (1.7-2.2) 12/15/17 06:00 Total Bilirubin 0.6 mg/dL (0.2-1.3) 12/17/17 07:00 AST 21 U/L (14-36) 12/17/17 07:00 ALT 24 U/L (7-56) 12/17/17 07:00 Alkaline Phosphatase 73 U/L (38-126) 12/17/17 07:00 Total Creatine Kinase 31 U/L (35-230) L 12/15/17 06:00 Total Protein 7.6 g/dL (5.8-8.3) 12/17/17 07:00 Albumin 4.0 g/dL (3.0-4.8) 12/17/17 07:00 Globulin 3.6 gm/dL 12/17/17 07:00 Albumin/Globulin Ratio 1.1 (1.1-1.8) 12/17/17 07:00 Urine Color Yellow (YELLOW) 12/14/17 20:01 Urine Appearance Clear (CLEAR) 12/14/17 20:01 Urine pH 7.5 (4.7-8.0) 12/14/17 20:01 Ur Specific [place] 1.015 (1.005-1.035) 12/14/17 20:01 Urine Protein Negative mg/dL (<30 mg/dL) 12/14/17 20:01 Urine Glucose (UA) Negative mg/dL (NEGATIVE) 12/14/17 20:01 Urine Ketones Negative mg/dL (NEGATIVE) 12/14/17 20:01 Urine Blood Negative (NEGATIVE) 12/14/17 20:01 Urine Nitrate Negative (NEGATIVE) 12/14/17 20:01 Urine Bilirubin Negative (NEGATIVE) 12/14/17 20:01 Urine Urobilinogen 0.2 E.U./dL (<1 E.U./dL) 12/14/17 20:01 Ur Leukocyte Esterase Negative Danielle/uL (NEGATIVE) 12/14/17 20:01 Urine HCG, Qual Negative (NEGATIVE) 12/14/17 20:01 Salicylates < 1 mg/dL (2.0-20.0) L 12/14/17 19:52 Urine Opiates Screen Negative (NEGATIVE) 12/14/17 20:01 Urine Methadone Screen Negative (NEGATIVE) 12/14/17 20:01 Acetaminophen < 10.0 ug/ml (10.0-20.0) L 12/14/17 19:52 Ur Barbiturates Screen Negative (NEGATIVE) 12/14/17 20:01 Ur Phencyclidine Scrn Negative (NEGATIVE) 12/14/17 20:01 Ur Amphetamines Screen Negative (NEGATIVE) 12/14/17 20:01 U Benzodiazepines Scrn Negative (NEGATIVE) 12/14/17 20:01 U Oth Cocaine Metabols Negative (NEGATIVE) 12/14/17 20:01 U Cannabinoids Screen Negative (NEGATIVE) 12/14/17 20:01 Alcohol, Quantitative < 10 mg/dL (0-10) 12/14/17 19:52 - Hospital Course Hospital Course: Patient is a 32 female with a past medical history of bipolar depression who was admitted for evaluation and treatment of drug overdose. Patient admitted for taking 20 mg Ambien and 1500 mg of Bupropion because she wanted to harm herself. With the use of physical examinations, lab work, and imaging the patient was diagnosed with and treated for drug overdose and suicide attempt. Poison control was contact and recommendations included observation for 24 hours for seizures. No seizure like activity was noted. During their hospital stay the patient was seen by psychiatry, Dr. Eli, whose recommendations were both appreciated and utilized in the care for this patient. Patient is willing to continue treatment in the psychiatry unit. During their hospital stay the patient underwent and EKG and chest xray which were reviewed, appreciated, and utilized in the management of the patients clinical course. Chest x-ray showed no acute intervention. EKG showed NSR, HR 95bpm, QTc 439ms. It was intended for patient to go to [facility] psychiatry unit however patient refused. Thus AES crisis rep from [facility] voluntary psych unit came to evaluate patient and was accepted. Patient will go to [facility] psychiatry unit. At this time the patient is medically stable for discharge to the psychiatry unit. Patient understands and appreciates discharge plan. Patient instructed to follow up with primary care physicians and referrals within three to five days from discharge. Furthermore, the patient is instructed to take medications as prescribed and to return to emergency room for evaluation of intractable headache, fever, chills, dizziness, chest pain, shortness of breath, abdominal pain, nausea, vomiting, diarrhea, constipation, and urinary symptoms. This is a brief summary of the patients hospital course. Please see patient chart for full details. Discharge Exam - Head Exam Head Exam: ATRAUMATIC, NORMOCEPHALIC - Additional Findings Additional findings: - Constitutional Appears: Well, Non-toxic, No Acute Distress - Head Exam Head Exam: ATRAUMATIC, NORMOCEPHALIC - Eye Exam Eye Exam: EOMI, Normal appearance - ENT Exam ENT Exam: Mucous Membranes Moist - Neck Exam Neck exam: Positive for: Normal Inspection. Negative for: Meningismus, Tenderness, Thyromegaly - Respiratory Exam Respiratory Exam: Clear to Auscultation Bilateral, NORMAL BREATHING PATTERN. absent: Rales, Rhonchi, Wheezes - Cardiovascular Exam Cardiovascular Exam: RRR, +S1, +S2. absent: Bradycardia, Gallop, JVD - GI/Abdominal Exam GI & Abdominal Exam: Normal Bowel Sounds, Soft. absent: Distended, Guarding, Rebound, Tenderness - Extremities Exam Extremities exam: Negative for: calf tenderness, pedal edema - Back Exam Back exam: NORMAL INSPECTION. absent: CVA tenderness (L), CVA tenderness (R), paraspinal tenderness - Neurological Exam Neurological exam: Alert, Oriented x3 - Psychiatric Exam Psychiatric exam: Normal Affect, Normal Mood - Skin Skin Exam: Dry, Intact, Normal Color, Warm Discharge Plan - Follow Up Plan Condition: STABLE Disposition: DISCHARGE TO PSYCH HOSPITAL Instructions: Bipolar Disorder (DC), Suicide Prevention for Adults (DC) Additional Instructions: Patient Instructions: 1. Please follow up with primary care physician, Dr. Arana, within 3-5 days from discharge 2. Please take home medications as prescribed. No adjustments were made during this admission. 3. Please return to emergency department for evaluation of new or worsening symptoms including but limited to fever, chills, chest pain, shortness of breath , abdominal pain, nausea, vomiting, diarrhea, constipation, and urinary symptoms. 4. Patient will be discharged to psych inpatient unit for further management as per Dr. Boo. Further psych medication adjustments as per Dr. House. Referrals: Alcira Castaneda MD [Staff Provider] - Lizeth Arana MD [Primary Care Provider] - <Kelsea Cosby - Last Filed: 12/17/17 16:59> Provider - Provider Date of Admission: 12/14/17 20:52 Attending physician: Vee Aldana MD Primary care physician: Lizeth Arana MD Hospital Course - Lab Results Lab Results: Most Recent Lab Values WBC 8.3 10^3/ul (4.5-11.0) 12/17/17 07:00 RBC 4.75 10^6/uL (3.5-6.1) 12/17/17 07:00 Hgb 13.2 g/dL (12.0-16.0) 12/17/17 07:00 Hct 40.8 % (36.0-48.0) 12/17/17 07:00 MCV 85.9 fl (80.0-105.0) 12/17/17 07:00 MCH 27.8 pg (25.0-35.0) 12/17/17 07:00 MCHC 32.4 g/dl (31.0-37.0) 12/17/17 07:00 RDW 13.9 % (11.5-14.5) 12/17/17 07:00 Plt Count 331 10^3/uL (120.0-450.0) 12/17/17 07:00 MPV 9.4 fl (7.0-11.0) 12/17/17 07:00 Gran % 69.1 % (50.0-68.0) H 12/17/17 07:00 Lymph % (Auto) 15.4 % (22.0-35.0) L 12/17/17 07:00 Crawford % (Auto) 11.7 % (1.0-6.0) H 12/17/17 07:00 Eos % (Auto) 3.7 % (1.5-5.0) 12/17/17 07:00 Baso % (Auto) 0.1 % (0.0-3.0) 12/17/17 07:00 Gran # 5.74 (1.4-6.5) 12/17/17 07:00 Lymph # (Auto) 1.3 (1.2-3.4) 12/17/17 07:00 Crawford # (Auto) 1.0 (0.1-0.6) H 12/17/17 07:00 Eos # (Auto) 0.3 (0.0-0.7) 12/17/17 07:00 Baso # (Auto) 0.01 K/mm3 (0.0-2.0) 12/17/17 07:00 Sodium 139 mmol/L (132-148) 12/17/17 07:00 Potassium 3.9 mmol/L (3.6-5.0) 12/17/17 07:00 Chloride 103 mmol/L (98-107) 12/17/17 07:00 Carbon Dioxide 28 mmol/L (21-33) 12/17/17 07:00 Anion Gap 12 (10-20) 12/17/17 07:00 BUN 16 mg/dL (7-21) 12/17/17 07:00 Creatinine 0.6 mg/dl (0.7-1.2) L 12/17/17 07:00 Est GFR ( Amer) > 60 10/15/18 07:00 Est GFR (Non-Af Amer) > 60 12/17/17 07:00 Random Glucose 106 mg/dL (70-110) 12/17/17 07:00 Calcium 9.3 mg/dL (8.4-10.5) 12/17/17 07:00 Phosphorus 3.8 mg/dL (2.5-4.5) 12/15/17 06:00 Magnesium 2.1 mg/dL (1.7-2.2) 12/15/17 06:00 Total Bilirubin 0.6 mg/dL (0.2-1.3) 12/17/17 07:00 AST 21 U/L (14-36) 12/17/17 07:00 ALT 24 U/L (7-56) 12/17/17 07:00 Alkaline Phosphatase 73 U/L (38-126) 12/17/17 07:00 Total Creatine Kinase 31 U/L (35-230) L 12/15/17 06:00 Total Protein 7.6 g/dL (5.8-8.3) 12/17/17 07:00 Albumin 4.0 g/dL (3.0-4.8) 12/17/17 07:00 Globulin 3.6 gm/dL 12/17/17 07:00 Albumin/Globulin Ratio 1.1 (1.1-1.8) 12/17/17 07:00 Urine Color Yellow (YELLOW) 12/14/17 20:01 Urine Appearance Clear (CLEAR) 12/14/17 20: Urine pH 7.5 (4.7-8.0) 12/14/17 20:01 Ur Specific [place] 1.015 (1.005-1.035) 12/14/17 20:01 Urine Protein Negative mg/dL (<30 mg/dL) 12/14/17 20:01 Urine Glucose (UA) Negative mg/dL (NEGATIVE) 12/14/17 20: Urine Ketones Negative mg/dL (NEGATIVE) 12/14/17 20:01 Urine Blood Negative (NEGATIVE) 12/14/17 20:01 Urine Nitrate Negative (NEGATIVE) 12/14/17 20: Urine Bilirubin Negative (NEGATIVE) 12/14/17 20: Urine Urobilinogen 0.2 E.U./dL (<1 E.U./dL) 12/14/17 20:01 Ur Leukocyte Esterase Negative Danielle/uL (NEGATIVE) 12/14/17 20:01 Urine HCG, Qual Negative (NEGATIVE) 12/14/17 20:01 Salicylates < 1 mg/dL (2.0-20.0) L 12/14/17 19:52 Urine Opiates Screen Negative (NEGATIVE) 12/14/17 20:01 Urine Methadone Screen Negative (NEGATIVE) 12/14/17 20:01 Acetaminophen < 10.0 ug/ml (10.0-20.0) L 12/14/17 19:52 Ur Barbiturates Screen Negative (NEGATIVE) 12/14/17 20:01 Ur Phencyclidine Scrn Negative (NEGATIVE) 12/14/17 20:01 Ur Amphetamines Screen Negative (NEGATIVE) 12/14/17 20:01 U Benzodiazepines Scrn Negative (NEGATIVE) 12/14/17 20:01 U Oth Cocaine Metabols Negative (NEGATIVE) 12/14/17 20:01 U Cannabinoids Screen Negative (NEGATIVE) 12/14/17 20:01 Alcohol, Quantitative < 10 mg/dL (0-10) 12/14/17 19:52 Attending/Attestation - Attestation I have personally seen and examined this patient.: Yes I have fully participated in the care of the patient.: Yes I have reviewed all pertinent clinical information, including history, physical exam and plan: Yes Notes (Text): 12/17/17 16:57 Medical record note made by the resident after discussion with my direction and input after the patient was personally seen and examined by me. I have reviewed the chart and agree that the record accurately reflects by personal performance of the history, physical exam, data review, and medical decision-making, in the course for the patient. I have also personally directed the plan of care. 32 female with a past medical history of bipolar depression who was admitted for evaluation and treatment of drug overdose, was monitored in telemetry. She remain stable, has been evaluated by Psychiatry, she was initially refusing Psychiatric admission first but now she is agreeable. She will be discharged to Psychiatry. Management plan was discussed in detail with patient. Education was provided.
[2017-12-17 13:01] VITALS: BP 120/65; PULSE 79; TEMP 98.9
--- NOTE | 2017-12-17 17:54 | PN ---
DATE: 12/17/2017 SUBJECTIVE: Over the weekend, the patient was screened by [facility], was accepted for screening. The patient changed her mind. The patient is willing to stay in the hospital and get treatment. Moreover, the patient is improving on Seroquel at the nighttime as well as Sonata as well as Paxil was initiated. The patient was willing to sign herself into the psychiatric inpatient unit and this information writer call [facility] to let them know about changing inpatient status and cancel the screening process. The patient will be signing into the psychiatric inpatient unit for evaluation and stabilization of depressive symptoms, possible suicidal ideation status post overdose of medication. This information writer will follow up on her on the psychiatric inpatient unit and hopefully the patient will be doing better. PHYSICAL EXAMINATION: VITAL SIGNS: Stable. Temperature 99.1, pulse 78, blood pressure 141/77, respirations 20, oxygen saturation is 98. MEDICATIONS: Reviewed. The patient is on Zofran, Protonix, Paxil 20 mg at the nighttime, Seroquel 25 mg at the nighttime, and Sonata. LABORATORY DATA: Reviewed. Most recent was from today, seems to be stable. Chemistry reviewed. Urinalysis negative for any substances and infection. MENTAL STATUS EXAMINATION: The patient presented to be depressed. Affect was more reactive. Mood described. I am getting little better and rather time sleeping. Thought process, coherent and goal directed. Thought content, the patient denies visual, auditory or tactile hallucinations. Transient feeling of hopelessness, but seems to be improving. Insight and judgment seems to be improving. Impulses are well controlled. IMPRESSION: Most likely, the patient has major depressive disorder, rule out adjustment disorder. PLAN: The patient will be transferred to the psychiatric inpatient unit in measures for observation, stabilization, education, titration. Meanwhile, the patient should be staying on one two one on the medical side. One to one will be discontinued at the time of admission to the psych gan. We will follow up the patient into the Psychiatric Inpatient Unit. Thank you very much for letting me participate in care of your patient. Should you have any questions give me a call back. Alcira Castaneda MD [facility] # [phone]
== END 2017-12-17 16:49 | DRG 450 ==
LOC: ED 18:42 → ERH 20:52 → 2RSO 23:04
PROVIDERS: ADMIT Hospitalist; ATTEND Internal Medicine
DX: T43.292A Poisoning by other antidepressants, intentional self-harm, initial encounter (principal); F31.30 Bipolar disorder, current episode depressed, mild or moderate severity, unspecified; D72.829 Elevated white blood cell count, unspecified

== ENCOUNTER 2017-12-17 16:50 | Inpatient (IN) | payer OTHER ==
[2017-12-17] MEDS ORDERED: Magnesium Hydroxide Susp 30 ml UD PO PRN (17:15)
[2017-12-17] MEDS ORDERED: Alum-Mag Hydrox-Simethicone Susp (30 mL) PO PRN (17:15)
--- NOTE | 2017-12-17 18:59 | PCM.BM ---
<Jyotsna Smyth - Last Filed: 12/17/17 18:56> Treatment Plan Problems - Problems identified on initial assessmt ANXIETY Date Initiated: 12/17/17 Time Initiated: 19:00 Assessment reference: NA Status: Active Priority: 1 ALTERED SLEEP PATTERN Date Initiated: 12/17/17 Time Initiated: 19:00 Assessment reference: NA Status: Active Priority: 2 PANIC ATTACKS Date Initiated: 12/17/17 Time Initiated: 19:00 Assessment reference: NA Status: Active Priority: 3 FEAR Date Initiated: 12/17/17 Time Initiated: 19:00 Assessment reference: NA Status: Active Priority: 4 Treatment assets and liabiliti Patient Assests: cooperative, motivated, ADL independent, good support system, negotiates basic needs, cognitively intact, good interpersonal skills Patient Liabilities: financial problems, relationship conflicts - Milieu Protocol Maintain good personal hygiene: daily Encourage regular showers, daily Remind patient to perform daily oral care, daily Assist patient to perform ADL's Maintain personal safety: every shift Educate patient to report safety concerns to staff, every shift Monitor environment for contraband/sharps Medication safety: Monitor for expected outcome, potential side effects: every shift, Assess barriers to learning: every shift, Assess readiness for medication education: every shift Discharge/Continuing Care - Education Needs Education Needs: Patient Medication, Patient Diagnosis/Disease Process, Patient Coping Skills, Patient Community resources, Patient Activities of Daily Living, Patient Nutrition, Patient Uses of Medical Equipment, Patient Health Practices/Safety, Patient Personal Hygiene/Grooming, Patient Aftercare Safety Plan - Discharge Discharge Criteria: Tolerates medication w/o severe side effects, Free of Suicidal thoughts, Normal sleep pattern, Reduction of target symptoms Discharge to:: Home <Vicki Smith - Last Filed: 12/18/17 12:28> - Diagnosis (1) Depressed Status: Acute Interventions: 12/18/17 12:28 group, milieu and supportive tx * Paxil 20 mg HS for depression and anxiety * Seroquel 25 mg po HS for insomnia and mood control * Sonata 5 mg HS prn: insomnia (2) Anxiety Status: Acute Interventions: 12/18/17 12:28 group, milieu and supportive tx * Paxil 20 mg HS for depression and anxiety * Seroquel 25 mg po HS for insomnia and mood control * Sonata 5 mg HS prn: insomnia (3) Suicidal ideation Status: Resolved Interventions: group, milieu and supportive tx * Paxil 20 mg HS for depression and anxiety * Seroquel 25 mg po HS for insomnia and mood control * Sonata 5 mg HS prn: insomnia 12/18/17 12:28
[2017-12-18] MEDS: Pantoprazole 40 mg EC Tab PO SCH ×2 (06:44→07:48)
[2017-12-18 07:34] VITALS: RESP 20
[2017-12-18 07:47] LABS: HDL CHOLESTEROL 44 mg/dL (29-60)
[2017-12-18 07:58] LABS: LDL CHOLESTEROL 122 mg/dL (0-129)
[2017-12-18 08:03] LABS: FREE T4 0.85 ng/dL (0.78-2.19)
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
[2017-12-19] MEDS: Pantoprazole 40 mg EC Tab PO SCH ×2 (06:42→06:55)
[2017-12-19 07:00] VITALS: BP 140/90; PULSE 84; TEMP 98.8
--- NOTE | 2017-12-20 05:41 | PN ---
DATE: 12/19/[address] Castaneda. SUBJECTIVE: The patient is a 33-year-old female with no prior psychiatric history who was admitted through medical floor from 12/14/2017 to 12/17/2017 after inadvertently overdosing on for Wellbutrin to Ambien. The patient had been reluctant to sign into Psychiatry, but changed her mind after the possibility that she would be committed. She was then transferred to the Psychiatric unit where she has been quite cooperative, but does not want to be here. She appeared to be alert, well-oriented, without suicidal or homicidal ideation or psychotic ideation. She does complain of anxiety which has worsened over the past several months making it difficult for her to focus her sleep. She felt that this has contributed to her feelings of depression. She denied wanting to , but just wanting to sleep. Her chart was reviewed, case was discussed with nursing. The patient's wish to leave was respected. Social work has been involved in extending the patient's welfare benefits. Her mother was in agreement that this was an inadvertent unfortunate occurrence with her that her daughter was suicidal or trying to hurt herself. Her mother reported that she has been a good mother to her children and would not harm to self the christianity beliefs. The patient was discharged and was to follow up at the [facility]. She was being maintained on Paxil 20 mg, Seroquel 25 mg at bedtime while on the psychiatric unit. She will continue care at the [facility] if she needed. Javi Ford MD/ PhD
== END 2017-12-19 16:30 | disposition home or self-care (01) | DRG 426 ==
LOC: PSYC 16:50
PROVIDERS: ADMIT Psychiatry & Neurology Psychiatry; ATTEND Psychiatry & Neurology Psychiatry
PROC: GZ3ZZZZ Medication Management (ICD-10-PCS; principal; 2017-12-17)
DX: F32.9 Major depressive disorder, single episode, unspecified (principal); F41.1 Generalized anxiety disorder; F41.0 Panic disorder [episodic paroxysmal anxiety]; G47.00 Insomnia, unspecified; R45.851 Suicidal ideations

== ENCOUNTER 2018-06-22 15:20 | Emergency (ER) | payer OTHER ==
[2018-06-22 15:25] VITALS: BMI 34.3
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
[2018-06-22 15:48] VITALS: BP 133/85; PULSE 96; RESP 18; TEMP 98.2; O2SAT 98
== END 2018-06-22 16:15 | disposition home or self-care (01) ==
LOC: ED 15:20
DX: J06.9 Acute upper respiratory infection, unspecified (principal)